=== PATIENT | female | born 1960 | race Caucasian/White ===

== ENCOUNTER 2018-01-14 15:57 | Inpatient (IN) | payer BC ==
[~2018-01-14] VITALS: Ht 165.1 cm; Wt 58.1 kg
[2018-01-14] MEDS ORDERED: DEXTROSE 5%/0.9% SOD CHL 1,000 ML IV ONE (16:15)
[2018-01-14 16:52] LABS: BASOPHILS % 0.3 % (0.0-1.0); EOSINOPHILS % 0.3 % (0.0-6.0); HEMATOCRIT 42.5 % (34.2-44.1); HEMOGLOBIN 15.1 g/dL (12.0-16.0); LYMPHOCYTES # (AUTO) 1.5 (1.0-3.2); LYMPHOCYTES % 22.4 % (18.0-39.1); MEAN CORPUSCULAR HEMOGLOBIN 36.7 pg (28-32); MEAN CORPUSCULAR HGB CONC 35.5 g/dL (31-35); MEAN CORPUSCULAR VOLUME 103.2 fL (81-99); MONOCYTES # (AUTO) 0.8 (0.2-0.8); MONOCYTES % 11.3 % (4.4-11.3); NEUTROPHILS # (AUTO) 4.4 (2.1-6.9); NEUTROPHILS % 65.6 % (38.7-80.0); PLATELET COUNT 278 x10e3/uL (140-360); RED BLOOD COUNT 4.12 x10e6/uL (3.6-5.1); RED CELL DISTRIBUTION WIDTH 12.6 % (11.7-14.4)
[2018-01-14 16:57] LABS: CLARITY,URINE SL CLOUDY (CLEAR); COLOR,URINE YELLOW (YELLOW); KETONES,URINE 1+ (NEGATIVE); LEUKOCYTE ESTERASE ,URINE NEGATIVE (NEGATIVE); NITRITE,URINE NEGATIVE (NEGATIVE); PROTEIN,URINE DIPSTICK TRACE (NEGATIVE); URINE UROBILINOGEN 0.2 mg/dL (0.2 - 1)
[2018-01-14 16:58] LABS: BILIRUBIN,URINE 2+ (NEGATIVE)
[2018-01-14 17:07] LABS: AMORPHOUS SEDIMENT,URINE FEW (FEW); BACTERIA,URINE MANY /HPF; EPITHELIAL CELLS,URINE MODERATE /LPF; RBC,URINE 0-5 /HPF (0-5)
[2018-01-14 17:10] LABS: ALANINE AMINOTRANSFERASE 21 IU/L (0-55); ALBUMIN 4.2 g/dL (3.5-5.0); ALBUMIN/GLOBULIN RATIO 1.2 (0.8-2.0); ALKALINE PHOSPHATASE 82 IU/L (40-150); AMYLASE 27 U/L (25-125); ANION GAP 22.1 mmol/L (8-16); BLOOD UREA NITROGEN 7 mg/dL (7-26); BUN/CREATININE RATIO 9 (6-25); CALCIUM 9.8 mg/dL (8.4-10.2); CARBON DIOXIDE 18 mmol/L (22-29); CHLORIDE 103 mmol/L (98-107); CREATININE, SERUM 0.74 mg/dL (0.57-1.11); EST GLOMERULAR FILTRATION RATE > 60 ML/MIN (60-); GLUCOSE 93 mg/dL (74-118); LIPASE 21 U/L (8-78); POTASSIUM 4.1 mmol/L (3.5-5.1); SODIUM 139 mmol/L (136-145)
[2018-01-14] MEDS ORDERED: SODIUM CHLORIDE 0.9% 50ML 50 ML ONE (18:30)
[2018-01-14] MEDS ORDERED: IOPAMIDOL 370 MG/ML 200 ML INFUS..BTL INJ ONE (18:31)
--- NOTE | 2018-01-14 18:36 | Diagnostic Imaging Report ---
EXAM: CT Abdomen and Pelvis WITH contrast INDICATION: \S\ABDOMINAL PAIN DIARRHEA COMPARISON: None. TECHNIQUE: Abdomen and pelvis were scanned utilizing a multidetector helical scanner from the lung base to the pubic symphysis after administration of IV contrast. Coronal and sagittal reformations were obtained. Routine protocol was performed. Scan was performed when during portal venous phase. IV CONTRAST: 100 mL of Isovue 370 ORAL CONTRAST: Water COMPLICATIONS: None RADIATION DOSE: Total DLP: 181.1 mGy*cm Estimated effective dose: (DLP x 0.015 x size factor) mSv CTDIvol has been reviewed. It is below the limits set by the Radiation Protocol Committee (RPC). FINDINGS: LINES and TUBES: None. LOWER THORAX: * 2 mm nodule in the right lower lobe (series 2 image 3). * 3 mm nodule in the right lower lobe (series 2, image 4). * 3 mm nodule in the left lower lobe (series 2, image 6). * 3 mm nodule in the left lower lobe (series 2 image 7). HEPATOBILIARY: The liver is diffuse hypodense compared to the spleen, consistent with diffuse hepatic diffuse hepatic steatosis. No focal hepatic lesions. Common bile measures 0.7 cm in diameter. GALLBLADDER: No radio-opaque stones or sludge. No wall thickening. SPLEEN: No splenomegaly. PANCREAS: No focal masses or ductal dilatation. ADRENALS: No adrenal nodules KIDNEYS/URETERS: Kidneys enhance symmetrically. No hydronephrosis. No cystic or solid mass lesions. No stones. GI TRACT: No abnormal distention, wall thickening, or evidence of bowel obstruction. Subtle inflammatory changes surrounding the colon especially in the transverse colon. Appendix is normal. PELVIC ORGANS/BLADDER: Mildly prominent endometrial stripe. LYMPH NODES: No lymphadenopathy. VESSELS: Unremarkable. PERITONEUM / RETROPERITONEUM: No free air or fluid. BONES: Unremarkable. SOFT TISSUES: Bilateral breast implants. Nonspecific soft tissue inflammatory changes in the lower abdomen, likely related to prior surgery. Small fat-containing umbilical hernia. IMPRESSION: 1. Mildly prominent endometrial stripe, which is indeterminate. If clinically indicated, recommend pelvic ultrasound. 2. Subtle inflammatory changes around the colon, consistent with history of diarrhea. 3. Diffuse hepatic steatosis. 4. Several tiny pulmonary nodules in the lungs. These are indeterminate but may represent infectious etiology. Signed by: Dr. Bandar Monreal M.D. on 01/14/2018 6:33 PM
[2018-01-14] MEDS ORDERED: D5.45%NS/KCL 20MEQ 1,000 ML IV SCH (19:24)
[2018-01-14] MEDS ORDERED: ONDANSETRON HCL INJ 2 MG/ML VIAL IV PRN (19:30)
[2018-01-14] MEDS ORDERED: MORPHINE SULFATE 2 MG/ML SYR IV PRN (19:30)
[2018-01-14] MEDS ORDERED: MORPHINE SULFATE INJ 4 MG/ML INJ IV PRN (19:45)
[2018-01-14] MEDS ORDERED: METRONIDAZOLE 500MG/NS 100ML IV SCH (20:00)
[2018-01-15] VITALS (9 sets, daily range): BP systolic 110–151; BP diastolic 65–78
[2018-01-15] MEDS: METRONIDAZOLE 500MG/NS 100ML IV SCH ×4 (02:23→21:15)
[2018-01-15] MEDS: MORPHINE SULFATE INJ 4 MG/ML INJ IV PRN ×3 (02:23→21:30)
[2018-01-15] MEDS: D5.45%NS/KCL 20MEQ 1,000 ML IV SCH ×3 (05:24→21:35)
[2018-01-15] MEDS ORDERED: METRONIDAZOLE 500MG/NS 100ML IV SCH (08:00)
[2018-01-15] MEDS: ONDANSETRON HCL INJ 2 MG/ML VIAL IV PRN ×2 (08:35→21:25)
[2018-01-15 15:43] LABS: AMYLASE 26 U/L (25-125); LIPASE 21 U/L (8-78)
[2018-01-15 16:06] LABS: FREE THYROXINE INDEX 1.3959 (1.4-3.8); THYROID STIMULATING HORMONE 1.844 uIU/mL (0.350-4.940)
[2018-01-15] MEDS: HOME MEDICATION--PATIENTS OWN PO ONE ×2 (16:09→17:45)
[2018-01-15 16:13] LABS: HIV 1&2 AB SCREEN NON-REACTIVE (NONREACTIVE)
--- NOTE | 2018-01-15 16:24 | Consultation ---
DATE OF CONSULTATION: January 15, 2018 REFERRING PHYSICIAN: Dr. Snow REASON FOR CONSULTATION: Diarrhea. HISTORY OF PRESENT ILLNESS: Ms. Snow is a very pleasant, 57-year-old woman who has nraog-uy-umxqhti diarrhea. She and her were well up until about 2 years ago when they went to the [facility] and the [facility]. There, they had multiple exposures including sand flea bites and local food. They did not encounter any fresh water but, of course, ocean water. Since then, they have had chronic diarrhea and abdominal pain in an episodic fashion. She will have 4 days of significant loose stools and then a week of more normal bowel regimen. Over this time, she has lost weight. There has been no visible blood in the stools. She has generalized weakness. She has been seeing Dr. Olivia and was scheduled to have a colonoscopy for further evaluation. She has had multiple rounds of stool studies, which have been unremarkable, as well as multiple rounds of antibiotics. Over the past week and a half, her symptoms became acutely worse. It was associated with chills and sweats. She has had crampy abdominal pain throughout, which she has been managing with q.4-6 h. alternating Motrin and acetaminophen. Over this time, she has had oral sores as well as significant joint pain, particularly in the ankles and lower extremities with sensation of a sort of restlessness like restless legs. Bowels are mostly liquid and were to the point over the past 4 days where she could not leave the house and could not eat. Pain is constant. She does get hungry; however, she did not feel well enough to eat. She has not had any hematuria. She does not have any past history of abnormal liver function tests. She has not had any numbness, tingling or focal weakness. She has noted that she needs to turn on a light to find her way to the bathroom in the dark and recently fell out of bed, which is apparently quite high, and broke some ribs. For some time now, she has had some chronic dysphagia where solids will hang up and need to be regurgitated in the upper esophagus near the sternal notch. Apparently, her mother and sister have had a similar thing. She has been told that she has dry eye and has had some blurry vision, which was previously thought to be related to Zoloft, which she no longer takes. She has not had any red eye or overt inflammation of her eyes. She did have a rash on her abdomen a couple of months ago. She has an intact gallbladder. PAST MEDICAL HISTORY: Hypothyroidism for which she has been on [place] Thyroid. SURGICAL HISTORY: Includes , scar revision and trimalleolar fracture of the right ankle with history of osteomyelitis for which the plate and screws have been removed. MEDICATION AND ALLERGIES: REVIEWED, PLEASE SEE MAR, MEDICATION RECONCILIATION FORM. SOCIAL HISTORY: No significant alcohol. No illicit substance. Travel as noted. She is . FAMILY HISTORY: Unremarkable. REVIEW OF SYSTEMS: A 12-system review was obtained and is positive as mentioned in HPI, otherwise unremarkable. PHYSICAL EXAMINATION GENERAL: Pleasant, alert, oriented, in no acute distress. HEENT: Pupils are equal, round, and reactive to light. NECK: Supple. LUNGS: Clear. CARDIOVASCULAR: S1, S2. ABDOMEN: Soft. Minimally tender in the central abdomen. She does have some mild distention with gas. No hepatosplenomegaly. No rebound or guarding. EXTREMITIES: No clubbing. She does have some cyanosis of her distal lower extremity feet, and they are cold but with good pulses. She has no rash today. PSYCH: Calm, cooperative. NEUROLOGIC: Normal with normal proprioception of the distal extremities. Normal sensation. HEM/ONC: No bruising or adenopathy. The electronic health record was reviewed for laboratory and radiologic studies as well as history. ASSESSMENT 1. Qcqyv-jk-mngpwst diarrhea. 2. Abnormal CT with colitis, transverse colon. 3. Dysphagia. PLAN: At the current time, will follow up pending infectious workup. Appreciate Dr. Harris. She has already had multiple studies and multiple rounds of antibiotics. Looking for rare causes of chronic diarrheal illness that can be obtained in the [facility], an infection with Schistosoma mansoni could be entertained, assuming more routine causes are ruled out. Certainly stool studies will be important. Given the chronicity of this and a sick contact who also has similar symptoms, less likely to be inclined that it is a noninfectious etiology. However, we will evaluate for that as well. Towards that end, I will plan for EGD and colonoscopy tomorrow with biopsies of the small bowel to look for an enteropathy as well as a violation of the colon for wnccz-th-skqdqik colitis or ileitis. It may be that she has an acute infection or superinfection such as C. diff given her recent antibiotic exposure. I appreciate she has already been put on Flagyl, and C. diff is pending. If she has C. Diff, likely it will only explain the acute episode which she is currently experiencing, not the more chronic underlying problem. Dysphagia seems to be a chronic and possibly familial condition. We will evaluate this and do potential dilation when we do her upper endoscopy. She is noted to have significant macrocytosis. This may be related to GI pathology, particularly if she has some B12 deficiency. Full evaluation for the B12 deficiency and folate deficiency was ordered as well. She has an abnormal AST of 46. This could be from hepatic involvement versus another source. I am going to go ahead and send off a CK to see if it could be from muscle source. Her hepatic imaging did show some mild fatty liver, could be related to this versus an acute illness. Will follow her LFTs. In the meantime, will continue with supportive care, monitoring and correcting electrolytes as needed and then nutritional support after her endoscopic procedures are completed. Thank you very much for asking me to see Ms. Snow. Any questions or concerns, please do not hesitate to contact me. I will follow with you. Job#: [id number]
[2018-01-15 16:30] LABS: FOLATE 16.8 ng/mL (7.0-15.4)
--- NOTE | 2018-01-15 18:46 | Consultation ---
DATE OF CONSULTATION: January 15, 2018 INFECTIOUS DISEASE CONSULTATION REASON FOR CONSULTATION: Abdominal pain, diarrhea, concerned about gastroenteritis. HISTORY OF PRESENT ILLNESS: Thank you so much for asking me to see this patient. This is a very pleasant 57-year-old white female. She is here because she is having abdominal pain. It all started about 2 years ago apparently after she was in a trip in [facility], but she remembered that there was a lot of mosquitos and bites and insects; but since then she has been having these episodes of diarrhea which comes and goes. Diarrhea is frequent, mucousy sometimes. She has been seen by Dr. Olivia, who did colonoscopy on her. All that he found was diverticulosis per patient. She took Bactrim, Flagyl and Alinia, and the diarrhea persists. She prescribed them as episodic of diarrhea which comes and goes, but they are also in association with nausea and vomiting and episodes of dehydration. Patient comes this time because she is not feeling well. It is another one of these episodes which happen every week or 2 weeks, diarrhea, vomiting, flu-like illness. Came in because she was feeling weak. She says she lost 15 pounds over the last few months. Sometimes there is association with joint pain. The patient is currently lying in bed comfortably, complaining of abdominal pain. She does have history of hypothyroidism. The patient comes in with these symptoms. She had a CT of the abdomen and pelvis. The CAT scan shows several small nodules 2 mm in the right lower lobe, left lower lobe. The liver showed diffuse hypodense to the spleen consistent with hepatic diffuse steatosis. Patient has bilateral breast implant. She has subtle inflammatory changes around the colon consistent with history of diarrhea. PAST MEDICAL HISTORY: As above. PAST SURGICAL HISTORY: She had . She had tummy tuck apparently a year ago. ALLERGIES: NKA. SOCIAL HISTORY: There is currently no smoking, drug abuse, alcohol abuse. FAMILY HISTORY: Otherwise noncontributory. REVIEW OF SYSTEMS: Besides what is mentioned above, HEENT: Negative. PULMONARY: Negative. CARDIAC: Negative. PHYSICAL EXAMINATION GENERAL: She is currently alert, oriented, does not seem to be in acute distress. VITAL SIGNS: Stable. Currently afebrile. HEENT: She does not appear icteric. NECK: Supple. No JVD, no lymphadenopathy, no thyromegaly. CHEST: Clear bilaterally. HEART: S1 and S2. No S3 or S4, no murmur. ABDOMEN: Soft. IMPRESSION 1. Chronic and recurrent diarrhea, etiology unclear. Concerned about chronic inflammatory process. CT is suggestive of colitis. Agree with colonoscopy and several biopsies. Will check for cryptococcal antigen, histoplasmosis, HIV, stools for O&P. The other possibility of her diarrhea if she has chronic hepatitis, chronic pancreatitis. Will discuss with GI. Will check hepatitis A, B and C. She also has history of hypothyroidism. 2. Multiple nodules in the lung. Concerned about chronic inflammation/infection. Will follow. Job#: [id number] EV
[2018-01-16] VITALS: BP 137/72
[2018-01-16] MEDS: METRONIDAZOLE 500MG/NS 100ML IV SCH ×3 (02:28→15:03)
[2018-01-16 05:10] VITALS: BP 109/62
[2018-01-16 07:50] VITALS: BP 129/62
[2018-01-16 08:06] VITALS: BP 129/62
[2018-01-16] MEDS: ONDANSETRON HCL INJ 2 MG/ML VIAL IV PRN (08:39)
[2018-01-16] MEDS: MORPHINE SULFATE INJ 4 MG/ML INJ IV PRN ×2 (08:39→18:25)
[2018-01-16] MEDS ORDERED: PANTOPRAZOLE SOD 40 MG TABEC PO SCH (14:00)
[2018-01-16 16:43] VITALS: BP 146/78
[2018-01-16] MEDS ORDERED: CEFAZOLIN SOD 1 GM VIAL IV SCH (17:00)
[2018-01-16] MEDS ORDERED: KEFLEX500 MG PO (17:04)
[2018-01-16] MEDS ORDERED: HIPREX1 GM PO (17:11)
[2018-01-16] MEDS ORDERED: PROPOFOL IV EMULSION 10 MG/ML 20 ML VIAL ONE (17:45)
[2018-01-16] MEDS ORDERED: LIDOCAINE HCL 2% LOCAL INJ 5 ML SDV VIAL INJ ONE (17:45)
[2018-01-16] MEDS ORDERED: PROPOFOL IV EMULSION 10 MG/ML 50 ML VIAL ONE (17:45)
[2018-01-16] MEDS ORDERED: MIDAZOLAM HCL 2 MG/2 ML VIAL ONE (17:47)
[2018-01-16] MEDS ORDERED: FENTANYL CITRATE/PF 100MCG/2 ML INJ ONE (17:47)
[2018-01-16] MEDS: D5.45%NS/KCL 20MEQ 1,000 ML IV SCH (18:26)
[2018-01-16] MEDS ORDERED: CEFAZOLIN SOD 1 GM in WATER STERILE 10ML VIAL 10 ML IV SCH (22:00)
[2018-01-21 14:24] LABS: ENDOMYSIAL ANTIBODIES, IGA Negative (Negative)
--- OUTSIDE RECORDS SUMMARY | 2018-01-27 10:23 | XMS REPORT ---
Author Author [facility] Address Unknown Phone Unavailable Care Team Providers Care Turnaround Engineer Name Role Phone Mamta BROWN Unavailable Unavailable Problems This patient has no known problems. Allergies, Adverse Reactions, Alerts This patient has no known allergies or adverse reactions. Medications This patient has no known medications. Results Test Description Test Time Test Comments Text Results Atomic Results Result Comments CT ABDOMEN/PELVIS W 2018-01-14 18:24:00 [place] [address] Patient Name: TESFAYE BROWN MR #: [id number] : 1960 Age/Sex: 57/F Req #: [id number] [facility] Physician: Ordered by: FERNANDO BROWN MD Report #: [id number] Location: ER Room/Bed: Procedure: [id number] CT/CT ABDOMEN/PELVIS W Exam Date: 01/14/18 Exam Time: 1743 REPORT STATUS: Signed EXAM: CT Abdomen and Pelvis WITH contrast INDICATION: S ABDOMINAL PAIN DIARRHEA COMPARISON: None. TECHNIQUE: Abdomen and pelvis were scanned utilizing a multidetector helical scanner from the lung base to the pubic symphysis after administration of IV contrast. Coronal and sagittal reformations were obtained. Routine protocol was performed. Scan was performed when during portal venous phase. IV CONTRAST: 100 mL of Isovue 370 ORAL CONTRAST: Water COMPLICATIONS: None RADIATION DOSE: Total DLP: 181.1 mGy*cm Estimated effective dose: (DLP x 0.015 x size factor) mSv CTDIvol has been reviewed. It is below the limits set by the Radiation Protocol Committee (RPC). FINDINGS: LINES and TUBES: None. LOWER THORAX: * 2 mm nodule in the right lower lobe (series 2 image 3). * 3 mm nodule in the right lower lobe (series 2, image 4). * 3 mm nodule in the left lower lobe (series 2, image 6). * 3 mm nodule in the left lower lobe (series 2 image 7). HEPATOBILIARY: The liver is diffuse hypodense compared to the spleen, consistent with diffuse hepatic diffuse hepatic steatosis. No focal hepatic lesions. Common bile measures 0.7 cm in diameter. GALLBLADDER: No radio-opaque stones or sludge. No wall thickening. SPLEEN: No splenomegaly. PANCREAS: No focal masses or ductal dilatation. ADRENALS: No adrenal nodules KIDNEYS/URETERS: Kidneys enhance symmetrically. No hydronephrosis. No cystic or solid mass lesions. No stones. GI TRACT: No abnormal distention, wall thickening, or evidence of bowel obstruction. Subtle inflammatory changes surrounding the colon especially in the transverse colon. Appendix is normal. PELVIC ORGANS/BLADDER: Mildly prominent endometrial stripe. LYMPH NODES: No lymphadenopathy. VESSELS: Unremarkable. PERITONEUM / RETROPERITONEUM: No free air or fluid. BONES: Unremarkable. SOFT TISSUES: Bilateral breast implants. Nonspecific soft tissue inflammatory changes in the lower abdomen, likely related to prior surgery. Small fat-containing umbilical hernia. IMPRESSION: 1. Mildly prominent endometrial stripe, which is indeterminate. If clinically indicated, recommend pelvic ultrasound. 2. Subtle inflammatory changes around the colon, consistent with history of diarrhea. 3. Diffuse hepatic steatosis. 4. Several tiny pulmonary nodules in the lungs. These are indeterminate but may represent infectious etiology. Signed by: Dr. Lillian Monreal M.D. on 01/14/2018 6:33 PM Dictated By: LILLIAN MONREAL MD 32 Transcribed By: JEFFRY on 01/14/181832 COPY TO: FERNANDO BROWN MD
--- NOTE | 2018-03-30 00:50 | Discharge Summary ---
This patient came in with chronic diarrhea. ID consult was done. CT scan showed colitis, inflammatory versus infectious. The patient also had a lung nodule, likely inflammatory. The patient was started on metronidazole q.6 h. and also pain control with morphine. The patient was also given fluids. ID consult was done. The patient had a complete blood work. The patient also underwent an EGD. The patient had upper esophageal stricture at Schatzki ring. The patient after this was feeling better and once her symptoms are better, the patient was discharged home in a stable condition. FINAL DIAGNOSES 1. Colitis. 2. Gastritis. 3. Schatzki ring upper esophageal stricture. 4. Lung nodule. The patient was asked to follow up with her primary care physician and also make sure that she follows up the lung nodule and also ID for possible infectious etiology of her diarrhea. For further information, look in the chart. For medicines on discharge, look in the medical reconciliation sheet. GLADYS HUMPHREY MD Job#: [id number] GE
== END 2018-01-16 19:50 | disposition home or self-care (01) | DRG 392 ==
LOC: ER 15:57 → ERHOLD 23:39 → MED/SURG2 23:43
PROVIDERS: ADMIT Family Medicine; ATTEND Family Medicine
PROC: 0DD78ZX Extraction of Stomach, Pylorus, Via Natural or Artificial Opening Endoscopic, Diagnostic (ICD-10-PCS; 2018-01-16)
PROC: 0DD48ZX Extraction of Esophagogastric Junction, Via Natural or Artificial Opening Endoscopic, Diagnostic (ICD-10-PCS; 2018-01-16)
PROC: 0D738ZZ Dilation of Lower Esophagus, Via Natural or Artificial Opening Endoscopic (ICD-10-PCS; 2018-01-16)
PROC: 0DBB8ZX Excision of Ileum, Via Natural or Artificial Opening Endoscopic, Diagnostic (ICD-10-PCS; principal; 2018-01-16 11:30)
PROC: 0DBE8ZX Excision of Large Intestine, Via Natural or Artificial Opening Endoscopic, Diagnostic (ICD-10-PCS; 2018-01-16 11:30)
PROC: 0DD98ZX Extraction of Duodenum, Via Natural or Artificial Opening Endoscopic, Diagnostic (ICD-10-PCS; 2018-01-16 11:30)
DX: A09 Infectious gastroenteritis and colitis, unspecified (principal); K52.9 Noninfective gastroenteritis and colitis, unspecified; E03.9 Hypothyroidism, unspecified; R91.8 Other nonspecific abnormal finding of lung field; R13.10 Dysphagia, unspecified; D75.89 Other specified diseases of blood and blood-forming organs; K29.80 Duodenitis without bleeding; K29.70 Gastritis, unspecified, without bleeding; K22.2 Esophageal obstruction; K76.0 Fatty (change of) liver, not elsewhere classified; K64.4 Residual hemorrhoidal skin tags; B96.20 Unspecified Escherichia coli [E. coli] as the cause of diseases classified elsewhere
CPT/HCPCS: 36415; 43239; 43450; 45378; 74177; 80053; 81001; 82150; 82550; 82607; 82746; 82784; 83090; 83516; 83605; 83690; 83921; 83993; 84436; 84443; 84479; 85025; 86256; 87045; 87086; 87177; 87186; 87328; 87385; 87390; 87493; 87536; 88305; 88312; 96361; 99284; G0433; G0435; J0690; J2001; J2250; J2270; J2405; J7042; Q9967

== ENCOUNTER → 2018-09-03 | Outpatient (CLI) | payer BC ==
[~2018-09-03] MED LIST: HIPREX1 GM PO; KEFLEX500 MG PO
--- NOTE | 2018-09-03 16:05 | Diagnostic Imaging Report ---
CT of the chest, without contrast, 09/03/2018. History: Lung nodules. Comparison: CT abdomen 01/14/2018. Technique: Multidetector CT scanning of the chest was performed from the level of the apices to the upper abdomen without contrast. Coronal and sagittal multiplanar reformations were obtained. RADIATION DOSE: Total DLP: 358 mGy*cm Dose modulation, iterative reconstruction, and/or weight based adjustment of the mA/kV was utilized to reduce the radiation dose to as low as reasonably achievable. Discussion: Evaluation is limited without IV contrast. Chest: The heart, aorta, and pulmonary vessels are normal in size. The thyroid is unremarkable. There is no mediastinal or axillary adenopathy. There is biapical pleural thickening. Scattered linear opacities are present throughout both upper and lower lobes. Scattered 2 to 3 mm noncalcified nodules are unchanged. There is no evidence of consolidation, suspicious nodule, or pleural effusion. Limited evaluation of the upper abdomen shows normal adrenal glands. Bones and soft tissues: No acute abnormality. Bilateral breast implants are present. IMPRESSION: Scattered bilateral linear scarring versus atelectasis. Stable tiny benign pulmonary nodules. No further follow-up recommended. Signed by: Navin Kline on 09/03/2018 4:01 PM
--- NOTE | 2018-09-03 16:29 | Diagnostic Imaging Report ---
EXAMINATION: MRI of the brain without contrast. HISTORY: Vertigo, hearing loss COMPARISON: None. TECHNIQUE: Sagittal T2; axial DWI, T2, FLAIR, T1-IR, T2 gradient echo; coronal FLAIR. IMAGE QUALITY: Adequate. FINDINGS: Parenchyma: 1. Few scatter and mildly confluent periventricular white matter T2 and FLAIR hyperintense foci, most likely nonspecific chronic microvascular ischemic changes. 2. No mass, hemorrhage, acute or chronic infarcts. Skull: Unremarkable. Vessels: Expected flow voids present in the major arteries and dural sinuses. Extra-axial spaces: No abnormal signal intensity or mass effect. Brain volume: Within normal limits for age. Ventricles: No hydrocephalus or displacement. Foramen magnum: Unremarkable. Sella: Unremarkable. Paranasal / mastoid sinuses: No significant inflammatory disease. Incidental findings: Partially visualized low T1 high T2 signal intensity lobular material in the subcutaneous soft tissues of the nasolabial sulci, likely cosmetic injections. IMPRESSION: Mild chronic microvascular ischemic changes, otherwise no intracranial abnormalities. Signed by: Dr. Amanda Escudero M.D. on 09/03/2018 4:25 PM
== END ==
LOC: MRI 14:47
PROVIDERS: ATTEND Family Medicine
DX: H81.311 Aural vertigo, right ear (principal); R91.8 Other nonspecific abnormal finding of lung field
CPT/HCPCS: 70551; 71250

== ENCOUNTER → 2019-03-26 | Outpatient (CLI) | payer BC ==
[2019-03-26 11:12] LABS: BLOOD UREA NITROGEN 9 mg/dL (7-26); BUN/CREATININE RATIO 13 (6-25); CREATININE, SERUM 0.72 mg/dL (0.57-1.11); EST GLOMERULAR FILTRATION RATE > 60 ML/MIN (60-)
--- NOTE | 2019-03-26 12:42 | Diagnostic Imaging Report ---
Chest, portable AP view History: PICC placement Comparison: No comparisons available for review IMPRESSION: Left upper cavity PICC tip terminates in excellent position at the cavoatrial junction. The heart is within normal limits of size. The mediastinal and hilar contours are unremarkable. No focal consolidation, pleural effusion, or pneumothorax. Signed by: Kolton Quintero MD on 03/26/2019 12:39 PM
== END ==
LOC: DX 10:20
PROVIDERS: ATTEND Internal Medicine Infectious Disease
DX: N39.0 Urinary tract infection, site not specified (principal)
CPT/HCPCS: 36415; 36569; 71045; 82565; 84520

== ENCOUNTER 2022-03-01 14:53 | Inpatient (IN) | payer BC, OTHER ==
[~2022-03-01] VITALS: Ht 165.1 cm; Wt 60.8 kg
[2022-03-01] MEDS ORDERED: SODIUM CHLORIDE 0.9% 1000ML 1,000 ML IV STA (15:26)
[2022-03-01] MEDS ORDERED: ONDANSETRON HCL INJ 2MG/ML 2ML 2 MG/ML VIAL IV PRN (15:30)
[2022-03-01 15:37] LABS: BASOPHILS # (AUTO) 0.1 (0.0-0.1); BASOPHILS % 1.5 % (0.0-1.0); EOSINOPHILS # (AUTO) 0.6 (0.0-0.4); EOSINOPHILS % 9.4 % (0.0-6.0); HEMOGLOBIN 11.3 g/dL (12.0-16.0); LYMPHOCYTES % 14.3 % (18.0-39.1); MEAN CORPUSCULAR HEMOGLOBIN 34.5 pg (28-32); MEAN CORPUSCULAR HGB CONC 31.4 g/dL (31-35); MEAN CORPUSCULAR VOLUME 109.8 fL (81-99); MONOCYTES # (AUTO) 0.6 (0.2-0.8); MONOCYTES % 9.4 % (4.4-11.3); NEUTROPHILS # (AUTO) 4.3 (2.1-6.9); NEUTROPHILS % 64.4 % (38.7-80.0); PLATELET COUNT 334 x10e3/uL (140-360); RED BLOOD COUNT 3.28 x10e6/uL (3.6-5.1); RED CELL DISTRIBUTION WIDTH 12.9 % (11.7-14.4)
[2022-03-01 15:51] LABS: ALBUMIN 3.4 g/dL (3.5-5.0); ANION GAP 15.4 mmol/L (8-16); CALCIUM 8.8 mg/dL (8.4-10.2); CREATININE, SERUM 0.73 mg/dL (0.57-1.11); POTASSIUM 4.4 mmol/L (3.5-5.1)
[2022-03-01 16:20] LABS: CLARITY,URINE SL CLOUDY (CLEAR); COLOR,URINE YELLOW (YELLOW); KETONES,URINE NEGATIVE (NEGATIVE); LEUKOCYTE ESTERASE ,URINE NEGATIVE (NEGATIVE); NITRITE,URINE NEGATIVE (NEGATIVE); PROTEIN,URINE DIPSTICK NEGATIVE (NEGATIVE)
[2022-03-01] MEDS ORDERED: IOPAMIDOL 370 MG/ML 100 ML INFUS..BTL INJ ONE (16:20)
[2022-03-01 16:21] LABS: URINE UROBILINOGEN 0.2 mg/dL (0.2 - 1)
[2022-03-01 16:27] LABS: EPITHELIAL CELLS,URINE RARE /LPF
[2022-03-01] MEDS: SODIUM CHLORIDE 0.9% 1000ML 1,000 ML IV SCH (18:29)
[2022-03-01] MEDS: Morphine 4mg INJECTION 4 MG/ML INJ IV PRN (21:55)
[2022-03-01] MEDS: ONDANSETRON HCL INJ 2MG/ML 2ML 2 MG/ML VIAL IV PRN (21:55)
[2022-03-01 22:57] VITALS: BP 123/77
[2022-03-01 23:08] VITALS: BP 123/77
[2022-03-02 00:03] VITALS: BP 123/77
[2022-03-02] MEDS: SODIUM CHLORIDE 0.9% 1000ML 1,000 ML IV SCH ×2 (02:21→09:25)
[2022-03-02] MEDS: ONDANSETRON HCL INJ 2MG/ML 2ML 2 MG/ML VIAL IV PRN (05:20)
[2022-03-02] MEDS: Morphine 4mg INJECTION 4 MG/ML INJ IV PRN ×2 (05:20→16:13)
[2022-03-02 06:25] LABS: BASOPHILS # (AUTO) 0.1 (0.0-0.1); BASOPHILS % 1.6 % (0.0-1.0); EOSINOPHILS # (AUTO) 0.6 (0.0-0.4); EOSINOPHILS % 13.1 % (0.0-6.0); HEMATOCRIT 29.3 % (34.2-44.1); HEMOGLOBIN 9.1 g/dL (12.0-16.0); LYMPHOCYTES % 21.1 % (18.0-39.1); MEAN CORPUSCULAR HEMOGLOBIN 34.3 pg (28-32); MEAN CORPUSCULAR HGB CONC 31.1 g/dL (31-35); MEAN CORPUSCULAR VOLUME 110.6 fL (81-99); MONOCYTES # (AUTO) 0.5 (0.2-0.8); NEUTROPHILS # (AUTO) 2.6 (2.1-6.9); NEUTROPHILS % 53.4 % (38.7-80.0); PLATELET COUNT 262 x10e3/uL (140-360); RED BLOOD COUNT 2.65 x10e6/uL (3.6-5.1); RED CELL DISTRIBUTION WIDTH 13.2 % (11.7-14.4)
[2022-03-02 07:15] LABS: ANION GAP 12.1 mmol/L (8-16); CALCIUM 7.8 mg/dL (8.4-10.2); CREATININE, SERUM 0.63 mg/dL (0.57-1.11); POTASSIUM 4.1 mmol/L (3.5-5.1)
[2022-03-02 07:24] VITALS: BP 109/74
[2022-03-02 08:57] VITALS: BP 109/74
[2022-03-02 11:19] VITALS: BP 136/86
[2022-03-02 11:39] LABS: EOSINOPHILS % (MANUAL) 8 % (0-7); LYMPHOCYTES % (MANUAL) 15 % (19-48); MONOCYTES % (MANUAL) 7 % (3.4-9.0); NEUTROPHILS % (MANUAL) 69 % (40-74); PLATELET ESTIMATE ADEQUATE; PLATELET MORPHOLOGY COMMENT NORMAL; RBC MORPHOLOGY COMMENT NORMAL
[2022-03-02 15:52] VITALS: BP 137/74
== END 2022-03-02 16:44 | disposition home or self-care (01) | DRG 391 ==
LOC: ER 15:00 → ERHOLD 17:03 → MED/SURG3 22:29
PROVIDERS: ADMIT Family Medicine; ATTEND Family Medicine
PROC: 0D748ZZ Dilation of Esophagogastric Junction, Via Natural or Artificial Opening Endoscopic (ICD-10-PCS; 2022-03-02)
PROC: 0DB68ZX Excision of Stomach, Via Natural or Artificial Opening Endoscopic, Diagnostic (ICD-10-PCS; principal; 2022-03-02 15:00)
DX: K22.2 Esophageal obstruction (principal); U07.1 COVID-19; K20.90 Esophagitis, unspecified without bleeding; K29.70 Gastritis, unspecified, without bleeding; K44.9 Diaphragmatic hernia without obstruction or gangrene; K22.4 Dyskinesia of esophagus; Z85.3 Personal history of malignant neoplasm of breast; E03.9 Hypothyroidism, unspecified; Z87.440 Personal history of urinary (tract) infections; K21.9 Gastro-esophageal reflux disease without esophagitis; R13.10 Dysphagia, unspecified; D64.9 Anemia, unspecified
CPT/HCPCS: 36415; 43450; 71260; 74177; 80048; 80053; 81001; 83690; 84484; 85025; 88305; 88312; 88342; 93005; 94799; 99284; J2270; J2405; J7030; Q9967